=== PATIENT | male | born 1960 | race Caucasian/White ===

== ENCOUNTER 2020-01-22 12:41 | Emergency (ER) | payer OTHER ==
[~2020-01-22] VITALS: Ht 170.2 cm; Wt 70.0 kg
[2020-01-22] MEDS ORDERED: KETOROLAC 60MG/2ML VIAL IM ONE (15:45)
[2020-01-22 15:48] VITALS: BP 100/110
== END 2020-01-22 15:49 | disposition home or self-care (01) ==
LOC: ER 12:41
DX: M75.32 Calcific tendinitis of left shoulder (principal)
CPT/HCPCS: 73030; 96372; 99283; J1885